=== PATIENT | male | born 1980 | race African-American/Black ===

== ENCOUNTER 2017-03-20 10:57 | Inpatient (IN) | payer OTHER, SELFPAY ==
[~2017-03-20] VITALS: Ht 188 cm; Wt 95.1 kg
[2017-03-20 12:01] LABS: MEAN CORPUSCULAR HEMOGLOBIN 23.1 pg (27.0-33.0); MEAN CORPUSCULAR HGB CONC 31.1 g/dl (32.0-36.5); MEAN CORPUSCULAR VOLUME 74.2 fl (80.0-96.0); WHITE BLOOD COUNT 4.9 K/mm3 (4.0-10.0)
--- NOTE | 2017-03-20 12:14 | REP ---
RIGHT SHOULDER, THREE VIEWS: There is no evidence of an acute fracture, dislocation or intrinsic bone disease. IMPRESSION: No fracture or dislocation. Signed by Fan Schwartz MD 03/20/2017 01:31 P
--- NOTE | 2017-03-20 12:17 | REP ---
CERVICAL SPINE SERIES, EIGHT VIEWS: Eight views of the cervical spine are performed. There is no evidence of acute fracture or dislocation. There is no prevertebral soft tissue swelling. Disc spaces are well preserved. There is no significant subluxation with flexion or extension. IMPRESSION: No acute fracture or dislocation. Signed by Fan Schwartz MD 03/20/2017 01:31 P
[2017-03-20 12:31] LABS: ALBUMIN 4.3 GM/DL (3.2-5.2); ALBUMIN/GLOBULIN RATIO 1.43 (1.00-1.93); ALKALINE PHOSPHATASE 74 U/L (45-117); ALT/SGPT 18 U/L (12-78); ANION GAP 5 MEQ/L (8-16); AST/SGOT 14 U/L (15-37); BILIRUBIN,DIRECT 0.2 MG/DL (0.0-0.2); BILIRUBIN,TOTAL 0.6 MG/DL (0.2-1.0); BLOOD UREA NITROGEN 8 MG/DL (7-18); CALCIUM LEVEL 9.6 MG/DL (8.5-10.1); CARBON DIOXIDE LEVEL 32 MEQ/L (21-32); CHLORIDE LEVEL 106 MEQ/L (98-107); CREATININE FOR GFR 1.03 MG/DL (0.70-1.30); GLOMERULAR FILTRATION RATE > 60.0 (>60); GLUCOSE, FASTING 85 MG/DL (70-105); SODIUM LEVEL 143 MEQ/L (136-145); TOTAL PROTEIN 7.3 GM/DL (6.4-8.2)
[2017-03-20 13:16] LABS: METHADONE URINE NEGATIVE (NEGATIVE)
--- NOTE | 2017-03-20 14:37 | REP ---
CT Head without contrast HISTORY: Altered mental status COMPARISON: None There is no intraparenchymal hemorrhage, acute infarct, mass or midline shift. The ventricular system is normal in appearance. There is no extra cerebral collection. There is no fracture. The visualized sinuses are clear. IMPRESSION: There is no intracranial lesion. Signed by Krzysztof Hurtado MD 03/20/2017 02:28 P
[2017-03-20] MEDS ORDERED: MAALOX 30 ML SUSP *UDC PO PRN (16:30)
[2017-03-20] MEDS ORDERED: MOM 30ML SUSPENSION UDC PO PRN (16:30)
[2017-03-20] MEDS ORDERED: HALOPERIDOL 5 MG TAB PO PRN (16:30)
[2017-03-20] MEDS: LORazepam 2 MG TAB PO PRN (17:00)
[2017-03-20] MEDS ORDERED: LORazepam 2 MG TAB PO PRN (17:15)
[2017-03-20] MEDS ORDERED: THIAMINE 100 MG TAB PO ONE (17:15)
[2017-03-20 18:05] VITALS: BP 159/93
[2017-03-20] MEDS: risperiDONE 1 MG TAB PO SCH ×2 (18:41→20:42)
[2017-03-20] MEDS: traZODone 50 MG TAB PO PRN (20:42)
[2017-03-21 07:00] VITALS: BP 162/99
[2017-03-21] MEDS: MULTIVITAMINS/MINERALS THERAP 1 TAB PO SCH (09:10)
[2017-03-21] MEDS: THIAMINE 100 MG TAB PO SCH ×2 (09:10→22:46)
[2017-03-21] MEDS: risperiDONE 1 MG TAB PO SCH ×2 (09:10→12:50)
[2017-03-21] MEDS: FOLIC ACID 1 MG TAB PO SCH (09:10)
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
--- NOTE | 2017-03-21 10:53 | REP ---
LEFT SHOULDER, THREE VIEWS: HISTORY: Pain. There is no acute fracture or dislocation. The joint spaces are normal in appearance. IMPRESSION: There is no acute fracture or dislocation. Signed by Krzysztof Hurtado MD 03/21/2017 10:55 A
--- NOTE | 2017-03-21 11:02 | REP ---
BILATERAL HIPS, PELVIS, FIVE VIEWS: HISTORY: Pain. RIGHT HIP: There is no acute fracture or dislocation. The joint space is normal in appearance. IMPRESSION: There is no acute fracture or dislocation. LEFT HIP: There is no acute fracture or dislocation. The joint space is normal in appearance. IMPRESSION: There is no acute fracture or dislocation. Signed by Krzysztof Hurtado MD 03/21/2017 11:07 A
[2017-03-21 11:18] VITALS: BP 152/98
[2017-03-21] MEDS: LORazepam 2 MG TAB PO PRN ×2 (12:50→22:46)
[2017-03-21] MEDS ORDERED: OLANZapine 10 MG TAB PO ONE (13:00)
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
[2017-03-21 18:00] VITALS: BP 120/72
--- NOTE | 2017-03-21 19:28 | ECGEPIP ---
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
[2017-03-21] MEDS: OLANZapine 10 MG TAB PO SCH (22:46)
[2017-03-22 06:45] VITALS: BP 164/110
[2017-03-22 06:48] VITALS: BP 164/110
[2017-03-22 07:03] LABS: BASO # 0.1 K/mm3 (0.0-0.2); BASO % 1.3 % (0.0-1.0); EOS # 0.1 K/mm3 (0.0-0.50); EOS % 2.7 % (0.0-3.0); LARGE UNSTAINED CELL # 0.1 K/mm3 (0.0-0.4); LARGE UNSTAINED CELL % 2.5 % (0.0-4.0); LYMPH # 1.8 K/mm3 (1.5-4.5); LYMPH % 37.5 % (24.0-44.0); MEAN CORPUSCULAR HGB CONC 32.3 g/dl (32.0-36.5); MEAN CORPUSCULAR VOLUME 74.3 fl (80.0-96.0); MONO # 0.3 K/mm3 (0.0-0.8); MONO % 6.5 % (0.0-5.0); NEUTROPHILS # 2.2 K/mm3 (1.8-7.7); NEUTROPHILS % 49.5 % (36.0-66.0); PLATELET COUNT, AUTOMATED 270 k/mm3 (150-450); WHITE BLOOD COUNT 4.4 K/mm3 (4.0-10.0)
[2017-03-22 07:50] VITALS: BP 164/110
[2017-03-22] MEDS: THIAMINE 100 MG TAB PO SCH ×2 (09:07→20:58)
[2017-03-22] MEDS: OLANZapine 10 MG TAB PO SCH ×3 (09:07→20:58)
[2017-03-22] MEDS: FOLIC ACID 1 MG TAB PO SCH (09:07)
[2017-03-22] MEDS: MULTIVITAMINS/MINERALS THERAP 1 TAB PO SCH (09:07)
[2017-03-22 18:00] VITALS: BP 144/90
[2017-03-22 19:57] VITALS: BP 144/90
[2017-03-22] MEDS: LORazepam 2 MG TAB PO PRN (20:58)
[2017-03-23] VITALS (7 sets, daily range): BP systolic 140–186; BP diastolic 90–110
[2017-03-23] MEDS: LORazepam 2 MG TAB PO PRN ×2 (04:09→12:19)
[2017-03-23] MEDS: OLANZapine 10 MG TAB PO SCH ×3 (08:07→20:27)
[2017-03-23] MEDS: THIAMINE 100 MG TAB PO SCH (08:07)
[2017-03-23] MEDS: FOLIC ACID 1 MG TAB PO SCH (08:07)
[2017-03-23] MEDS: MULTIVITAMINS/MINERALS THERAP 1 TAB PO SCH (08:07)
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
[2017-03-23] MEDS: traZODone 50 MG TAB PO PRN (20:27)
[2017-03-24] VITALS (9 sets, daily range): BP systolic 146–166; BP diastolic 96–116
[2017-03-24] MEDS: LORazepam 2 MG TAB PO PRN ×3 (01:26→16:51)
--- NOTE | 2017-03-24 06:35 | IPN ---
DATE: 03/23/2017 The patient states that today he is feeling anxious and tired. He said he slept good. He remains delusional. He says that he is dealing with having some amnesia about the days prior to his hospitalization and he wants somebody to show him "a video". He feels he is not being treated as a person if this is not done. MENTAL STATUS EXAMINATION: This patient is alert and oriented times three. Eye contact is really good. He is not suicidal or homicidal. He continues with paranoid delusions and that his mood is "not good". Affect is appropriate to mood. Concentration is fair. Insight and judgment poor. DIAGNOSIS: Schizoaffective disorder. Cannabis use disorder. TREATMENT PLAN: At this point, we will continue to monitor the patient for continued resolution of his psychotic symptoms and we will titrate his medications as indicated.
[2017-03-24] MEDS: OLANZapine 10 MG TAB PO SCH ×3 (09:04→21:06)
[2017-03-24] MEDS: MULTIVITAMINS/MINERALS THERAP 1 TAB PO SCH (09:04)
[2017-03-24] MEDS: FOLIC ACID 1 MG TAB PO SCH (09:04)
[2017-03-24 09:07] LABS: BASO % 1.2 % (0.0-1.0); EOS # 0.2 K/mm3 (0.0-0.50); EOS % 4.1 % (0.0-3.0); LARGE UNSTAINED CELL # 0.1 K/mm3 (0.0-0.4); LARGE UNSTAINED CELL % 1.8 % (0.0-4.0); LYMPH # 1.3 K/mm3 (1.5-4.5); LYMPH % 30.7 % (24.0-44.0); MEAN CORPUSCULAR HEMOGLOBIN 23.6 pg (27.0-33.0); MEAN CORPUSCULAR HGB CONC 31.3 g/dl (32.0-36.5); MEAN CORPUSCULAR VOLUME 75.5 fl (80.0-96.0); MONO # 0.3 K/mm3 (0.0-0.8); MONO % 6.7 % (0.0-5.0); NEUTROPHILS # 2.3 K/mm3 (1.8-7.7); NEUTROPHILS % 55.5 % (36.0-66.0); PLATELET COUNT, AUTOMATED 239 k/mm3 (150-450); RED CELL DISTRIBUTION WIDTH 14.9 % (11.5-14.5)
[2017-03-24 09:12] LABS: REASON FOR REVIEW COMPREHENSIVE REVIEW
[2017-03-24 11:13] LABS: FOLATE 21.2 NG/ML (>5.4)
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
[2017-03-24] MEDS: ARIPiprazole 10 MG TAB PO SCH (15:44)
[2017-03-24] MEDS ORDERED: cloNIDine 0.1 MG TAB PO STA (18:22)
[2017-03-25 06:58] VITALS: BP 147/98
[2017-03-25] MEDS: ARIPiprazole 10 MG TAB PO SCH (08:08)
[2017-03-25] MEDS: OLANZapine 10 MG TAB PO SCH ×3 (08:08→20:57)
[2017-03-25] MEDS: FOLIC ACID 1 MG TAB PO SCH (08:08)
[2017-03-25] MEDS: MULTIVITAMINS/MINERALS THERAP 1 TAB PO SCH (08:08)
[2017-03-25] MEDS: cloNIDine 0.1 MG TAB PO PRN ×2 (08:08→16:13)
[2017-03-25 09:39] VITALS: BP 148/98
[2017-03-25 18:00] VITALS: BP 138/102
[2017-03-25] MEDS: LORazepam 2 MG TAB PO PRN (20:57)
[2017-03-26 06:55] VITALS: BP 164/110
[2017-03-26] MEDS: cloNIDine 0.1 MG TAB PO PRN ×2 (06:55→17:24)
[2017-03-26] MEDS: LORazepam 2 MG TAB PO PRN ×3 (07:45→20:38)
[2017-03-26 07:48] VITALS: BP 146/100
--- NOTE | 2017-03-26 08:38 | MHIPN ---
DATE: 03/25/2017 Vital signs: Temperature 97.0, pulse 96, respirations 18, blood pressure 147/98. CURRENT MEDICATIONS: - Zyprexa 10 mg three times daily - Abilify 10 mg every morning - trazodone 50 mg at bedtime as needed HISTORY OF PRESENT ILLNESS: Patient claims he is claustrophobic here on the unit. He would like to go outside for a run. This clearly is not possible. He complains of having lost memories with gaps in his knowledge between August and November 2016. He would like to have cameras reviewed to provide information about his past. His outpatient psychiatrist is trying to attempt a transfer to inpatient facility at the [facility] ([place]). Patient is agreeable to this. Patient may be a candidate for the Abilify Maintena. Patient has tolerated the oral Abilify 10 mg well for two doses so far. Patient still gets paranoid about events regarding his trespassing change and the police. He gets agitated but is more easily directable. His appetite is fine. He reports he is sleeping well here on the unit. He is starting to interact more with the other patients and to go to the therapy treatment options. MENTAL STATUS EXAMINATION: Patient less agitated. Paranoia persists but not as severe. His rants and rages are decreased in frequency and intensity. Patient is still hearing voices. Paranoia still evident. Insight and judgment appear limited. Depression not as prominent. No signs of jody. Decrease in psychomotor agitation. Impulse control seems improved. DIAGNOSIS: Schizoaffective disorder, depressed. Cannabis use disorder. PLAN: Continue current psychotropics. Possible transfer to [facility] if bed becomes available.
[2017-03-26] MEDS ORDERED: FAMOTIDINE 20 MG TAB PO SCH (09:00)
[2017-03-26] MEDS: OLANZapine 10 MG TAB PO SCH ×3 (09:34→20:38)
[2017-03-26] MEDS: MULTIVITAMINS/MINERALS THERAP 1 TAB PO SCH (09:34)
[2017-03-26] MEDS: ARIPiprazole 10 MG TAB PO SCH (09:34)
[2017-03-26] MEDS: FOLIC ACID 1 MG TAB PO SCH (09:35)
[2017-03-26] MEDS: amLODIPine 5 MG TAB PO SCH (09:35)
[2017-03-26 17:33] VITALS: BP 138/90
[2017-03-26 18:00] VITALS: BP 152/110
[2017-03-26] MEDS: traZODone 50 MG TAB PO PRN (20:38)
[2017-03-27 06:27] VITALS: BP 162/98
[2017-03-27 08:01] VITALS: BP 152/96
[2017-03-27] MEDS: MULTIVITAMINS/MINERALS THERAP 1 TAB PO SCH (08:04)
[2017-03-27] MEDS: cloNIDine 0.1 MG TAB PO PRN ×2 (08:04→16:35)
[2017-03-27] MEDS: ARIPiprazole 10 MG TAB PO SCH (08:04)
[2017-03-27] MEDS: FOLIC ACID 1 MG TAB PO SCH (08:04)
[2017-03-27] MEDS: amLODIPine 5 MG TAB PO SCH ×2 (08:04→17:54)
[2017-03-27] MEDS: OLANZapine 10 MG TAB PO SCH ×3 (08:04→22:11)
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
[2017-03-27 09:33] VITALS: BP 128/88
[2017-03-27] MEDS ORDERED: LORazepam 1 MG TAB PO PRN (11:45)
[2017-03-27 17:17] VITALS: BP 158/106
[2017-03-27] MEDS ORDERED: amLODIPine 5 MG TAB As Ordered ONE (17:53)
[2017-03-27 18:00] VITALS: BP 158/120
[2017-03-27] MEDS ORDERED: cloNIDine 0.1 MG TAB PO ONE (18:00)
[2017-03-27 19:30] VITALS: BP 138/96
[2017-03-28] MEDS: cloNIDine 0.2 MG TAB PO PRN (06:02)
[2017-03-28 06:18] VITALS: BP 174/102
--- NOTE | 2017-03-28 07:22 | MHIPN ---
DATE: 03/26/2017 Vital signs: Temperature 98.8, pulse 66, respiration 18, blood pressure 164/110. CURRENT MEDICATIONS: - Abilify 10 mg daily every morning - Zyprexa 10 mg three times daily - trazodone 50 mg at bedtime as needed HISTORY OF PRESENT ILLNESS: Patient's blood pressure is elevated. He has been given as needed clonidine, however, he states that he will discontinue the blood pressure meds upon discharge. He claims he is into natural treatments. He meditates. He thinks he can control his blood pressure on his own. He is strongly advised to cooperate with is primary care physician upon discharge. He states his appetite is good. He is starting to attend the groups now. He is less irritable. Patient is still paranoid but is not going off on the rages or rants that he was doing earlier in the week. Patient still wants to go outside to go for a run but he is informed that he needs to stay here in the hospital while his medications are adjusted. Hopefully the [facility] ([place]) will have a bed that opens up soon. MENTAL STATUS EXAMINATION: Patient is more appropriate today. He is not agitated. He still reports paranoid content but without any long winded rages. Patient is still hearing voices. Patient not appearing depressed today. Psychomotor restlessness definitely improved. Impulse control seems improved. Insight and judgment appear fair. Insight about his blood pressure is nil. He shows poor judgment regarding his blood pressure medications. DIAGNOSIS: Schizoaffective disorder, depressed. Cannabis use disorder. PLAN: Continue current psychotropics with hopeful transfer to [facility] in the near future.
[2017-03-28 08:25] VITALS: BP 154/92
[2017-03-28] MEDS: OLANZapine 10 MG TAB PO SCH ×3 (08:49→20:39)
[2017-03-28] MEDS: ARIPiprazole 10 MG TAB PO SCH (08:49)
[2017-03-28] MEDS: MULTIVITAMINS/MINERALS THERAP 1 TAB PO SCH (08:49)
[2017-03-28] MEDS: FOLIC ACID 1 MG TAB PO SCH (08:49)
[2017-03-28] MEDS: amLODIPine 5 MG TAB PO SCH ×2 (08:49→20:40)
[2017-03-28 08:50] VITALS: BP 124/90
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
[2017-03-28 12:00] VITALS: BP 159/90
[2017-03-28 18:00] VITALS: BP 161/89
[2017-03-28] MEDS: traZODone 50 MG TAB PO PRN (20:39)
[2017-03-28 20:40] VITALS: BP 150/100
[2017-03-29 06:45] VITALS: BP 154/99
[2017-03-29 07:52] VITALS: BP 156/94
[2017-03-29] MEDS: FOLIC ACID 1 MG TAB PO SCH (07:54)
[2017-03-29] MEDS: OLANZapine 10 MG TAB PO SCH ×3 (07:54→20:12)
[2017-03-29] MEDS: MULTIVITAMINS/MINERALS THERAP 1 TAB PO SCH (07:54)
[2017-03-29] MEDS: amLODIPine 5 MG TAB PO SCH ×2 (07:55→20:12)
[2017-03-29] MEDS ORDERED: CEPACOL LOZENGE PO PRN (12:15)
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
[2017-03-29 18:00] VITALS: BP 140/94
[2017-03-29] MEDS: traZODone 50 MG TAB PO PRN (20:12)
[2017-03-29] MEDS: cloNIDine 0.2 MG TAB PO PRN (20:13)
[2017-03-29] MEDS: LORazepam 1 MG TAB PO PRN (20:13)
[2017-03-30 07:08] VITALS: BP 148/94
[2017-03-30 08:20] VITALS: BP 159/94
[2017-03-30] MEDS: OLANZapine 10 MG TAB PO SCH ×3 (08:21→21:06)
[2017-03-30] MEDS: amLODIPine 5 MG TAB PO SCH ×2 (08:21→21:06)
[2017-03-30] MEDS: MULTIVITAMINS/MINERALS THERAP 1 TAB PO SCH (08:21)
[2017-03-30] MEDS: FOLIC ACID 1 MG TAB PO SCH (08:21)
[2017-03-30] MEDS: cloNIDine 0.2 MG TAB PO PRN (08:21)
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
[2017-03-30 18:00] VITALS: BP 124/77
[2017-03-30] MEDS: traZODone 50 MG TAB PO PRN (21:04)
[2017-03-31 06:23] VITALS: BP 148/86
[2017-03-31] MEDS: FOLIC ACID 1 MG TAB PO SCH (08:08)
[2017-03-31] MEDS: MULTIVITAMINS/MINERALS THERAP 1 TAB PO SCH (08:08)
[2017-03-31] MEDS: amLODIPine 5 MG TAB PO SCH ×2 (08:08→20:53)
[2017-03-31] MEDS: OLANZapine 10 MG TAB PO SCH ×3 (08:08→20:52)
[2017-03-31] MEDS: ACETAMINOPHEN TAB 650MG DOSE (2X325MG) PO PRN (08:09)
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
[2017-03-31 18:00] VITALS: BP 160/108
[2017-03-31] MEDS: LORazepam 1 MG TAB PO PRN (19:17)
[2017-03-31] MEDS: cloNIDine 0.2 MG TAB PO PRN (19:20)
[2017-03-31] MEDS: traZODone 50 MG TAB PO PRN (20:52)
[2017-04-01 07:32] VITALS: BP 136/82
[2017-04-01] MEDS: OLANZapine 10 MG TAB PO SCH ×3 (08:26→20:14)
[2017-04-01] MEDS: FOLIC ACID 1 MG TAB PO SCH (08:26)
[2017-04-01] MEDS: amLODIPine 5 MG TAB PO SCH ×2 (08:26→20:14)
[2017-04-01] MEDS: MULTIVITAMINS/MINERALS THERAP 1 TAB PO SCH (08:26)
--- NOTE | 2017-04-01 17:44 | MHIPNPDOC ---
[facility] Progress Note Progress Note DATE OF SERVICE: 04/01/17 HISTORY: Patient was seen and evaluated for his progress in the inpatient psychiatric unit on the evaluation. Patient reported that he has been upset that he is still in the inpatient unit. He has been still, pacing around in the unit, getting upset easily and at times banging on the doors, He is refusing to participate in the any activities of the unit and most of her time either watching TV or pacing in the unit. He continues to deny any suicidal or homicidal ideations, also denies any hallucinations. Denies any paranoid or other psychotic features but remains internally preoccupied. Offered him to go for long-term injectable and psychotic medication, but he refused to go for one at this point Outpatient psychiatry from [place] called to discuss about the progress of the patient. He reported that they're trying to help patient transferred to inpatient psychiatry in [facility], but so far do not have any bed available. He is willing to take the patient back after discharge from the inpatient unit. VITAL SIGNS: See below. CURRENT MEDICATIONS: - Abilify 10 mg daily - Zyprexa 10 mg three times daily - trazodone 50 mg at bedtime as needed MENTAL STATUS EXAMINATION: 36yo male sitting in the bed, looks appropriate for the stated age, poor hygiene and grooming, increased psychomotor activities, no abnormal movements, superficially cooperative with fair eye contact, speech is increased in rate, normal rhythm, amount and prosody, mood is irritable, affect labile and mood congruent, tangential & circumstantial at times, denies suicidal and homicidal ideations, denies hallucinations, paranoid, aaox3 limited insight, judgement and impulse control DIAGNOSES: 1. Schizoaffective disorder, depressed type, marijuana abuse. ASSESSMENT: Patient continued to be internally preoccupied and does not participate in day any activities in the unit but denies any hallucinations at this point MANAGEMENT PLAN:, Continue current treatment. Possible transfer to inpatient psychiatry in [facility] TIME SPENT: 15 minutes. Vital Signs Vital Signs Date Time Temp Pulse Resp B/P (MAP) Pulse Ox O2 Delivery O2 Flow Rate FiO2 04/01/17 08:26 80 136/82 04/01/17 07:32 98.9 16 03/31/17 06:23 Room Air Allergies Coded Allergies: No Known Allergies (Unverified , 03/20/17) JOCE OLIVEIRA MD Apr 01, 2017 17:44
[2017-04-01 18:00] VITALS: BP 148/96
[2017-04-01] MEDS: traZODone 50 MG TAB PO PRN (20:14)
[2017-04-01] MEDS: ACETAMINOPHEN TAB 650MG DOSE (2X325MG) PO PRN (20:15)
[2017-04-02 07:01] VITALS: BP 152/110
[2017-04-02 07:46] VITALS: BP 150/86
[2017-04-02] MEDS: FOLIC ACID 1 MG TAB PO SCH (07:49)
[2017-04-02] MEDS: cloNIDine 0.2 MG TAB PO PRN ×2 (07:49→20:13)
[2017-04-02] MEDS: MULTIVITAMINS/MINERALS THERAP 1 TAB PO SCH (07:49)
[2017-04-02] MEDS: OLANZapine 10 MG TAB PO SCH ×3 (07:49→20:13)
[2017-04-02] MEDS: amLODIPine 5 MG TAB PO SCH ×2 (07:49→20:13)
[2017-04-02] MEDS: ACETAMINOPHEN TAB 650MG DOSE (2X325MG) PO PRN ×2 (11:31→20:14)
[2017-04-02 11:32] VITALS: BP 132/84
--- NOTE | 2017-04-02 17:34 | MHIPNPDOC ---
[facility] Progress Note Progress Note DATE OF SERVICE: 04/02/17 HISTORY: She was seen and evaluated for his progress in the inpatient psychiatric unit on evaluation, patient reported that he has been doing fine and does not know why she is still here. 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 It is still not able to engage in the anything unit activities, but no agitation or aggressive behavior. He also denies any auditory or visual hallucinations. He also denies some paranoid ideations, which she was reporting when he came in, like 'witch and warlock'. Discussed in the team meeting with systems requirements planner and nursing staff about further management and possible discharge planning. VITAL SIGNS: See below. CURRENT MEDICATIONS: - Zyprexa 10 mg three times daily - trazodone 50 mg at bedtime as needed MENTAL STATUS EXAMINATION: 36yo male sitting in the bed, looks appropriate for the stated age, fair hygiene and grooming, increased psychomotor activities, no abnormal movements, superficially cooperative with fair eye contact, speech is increased in rate, normal rhythm, amount and prosody, mood is irritable, affect labile and mood congruent, tangential & circumstantial at times, denies suicidal and homicidal ideations, denies hallucinations, paranoid, aaox3 limited insight, judgement and impulse control DIAGNOSES: 1. Schizoaffective disorder, depressed type, marijuana abuse. ASSESSMENT: Patient continued to be internally preoccupied and does not participate in day any activities in the unit but denies any hallucinations at this point MANAGEMENT PLAN:, Continue current treatment. Possible transfer to inpatient psychiatry in [facility] TIME SPENT: 15 minutes. Vital Signs Vital Signs Date Time Temp Pulse Resp B/P (MAP) Pulse Ox O2 Delivery O2 Flow Rate FiO2 04/02/17 11:32 132/84 (100) 04/02/17 07:49 86 04/02/17 07:01 96.8 16 04/01/17 18:00 Room Air Allergies Coded Allergies: No Known Allergies (Unverified , 03/20/17) JOCE OLIVEIRA MD Apr 02, 2017 17:34
[2017-04-02 18:00] VITALS: BP 127/80
[2017-04-02] MEDS: traZODone 50 MG TAB PO PRN (20:13)
[2017-04-03 06:17] VITALS: BP 156/98
[2017-04-03] MEDS: FOLIC ACID 1 MG TAB PO SCH (08:42)
[2017-04-03] MEDS: MULTIVITAMINS/MINERALS THERAP 1 TAB PO SCH (08:42)
[2017-04-03] MEDS: amLODIPine 5 MG TAB PO SCH ×2 (08:42→20:11)
[2017-04-03] MEDS: OLANZapine 10 MG TAB PO SCH ×3 (08:42→20:10)
[2017-04-03 08:50] VITALS: BP 148/90
[2017-04-03] MEDS: cloNIDine 0.2 MG TAB PO PRN ×2 (10:06→20:11)
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
[2017-04-03 18:00] VITALS: BP 125/71
[2017-04-03] MEDS: traZODone 50 MG TAB PO PRN (20:10)
[2017-04-03] MEDS: ACETAMINOPHEN TAB 650MG DOSE (2X325MG) PO PRN (20:11)
[2017-04-04 06:49] VITALS: BP 179/110
[2017-04-04 07:47] VITALS: BP 158/82
[2017-04-04] MEDS: MULTIVITAMINS/MINERALS THERAP 1 TAB PO SCH (08:10)
[2017-04-04] MEDS: FOLIC ACID 1 MG TAB PO SCH (08:10)
[2017-04-04] MEDS: amLODIPine 5 MG TAB PO SCH ×2 (08:11→20:20)
[2017-04-04] MEDS: OLANZapine 10 MG TAB PO SCH ×3 (08:11→20:20)
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
[2017-04-04] MEDS: LISINOPRIL 5 MG TAB PO SCH (09:08)
[2017-04-04 09:09] VITALS: BP 130/86
--- NOTE | 2017-04-04 15:20 | MHIPNPDOC ---
[facility] Progress Note Progress Note DATE OF SERVICE: 04/04/17 HISTORY: Patient was seen and evaluated for his progress in inpatient psychiatry Unit. On evaluation, patient reported that he is still not able to understand why still he is here. After discussing about the various disposition options. He continued to be upset and angry. Patient started pacing in the unit and was started to have gestures from his hands and legs. He reported that he likes to be at home and listen to music and dance in his apartment, but while being here, He is not able to do that. He remains internally preoccupied and unpredictable at times. He refused to talk with the author after small conversation. He continues to deny suicidal or homicidal ideations and also denies auditory or visual hallucinations, but remains internally preoccupied and possibly responding to internal stimuli. He reported sleeping and eating fine and denies paranoid ideations. VITAL SIGNS: See below. CURRENT MEDICATIONS: - Zyprexa 10 mg three times daily - trazodone 50 mg at bedtime as needed MENTAL STATUS EXAMINATION: 36yo male sitting in the bed, looks appropriate for the stated age, fair hygiene and grooming, increased psychomotor activities, no abnormal movements, superficially cooperative with fair eye contact, speech is increased in rate, normal rhythm, amount and prosody, mood is irritable, affect labile and mood congruent, tangential & circumstantial at times, denies suicidal and homicidal ideations, denies hallucinations, paranoid, aaox3 limited insight, judgement and impulse control DIAGNOSES: 1. Schizoaffective disorder, depressed type, marijuana abuse. ASSESSMENT: Patient continued to be internally preoccupied and does not participate in day any activities in the unit but denies any hallucinations at this point MANAGEMENT PLAN:, Continue current treatment. Possible transfer to inpatient psychiatry in [facility] TIME SPENT: 15 minutes. Vital Signs Vital Signs Date Time Temp Pulse Resp B/P (MAP) Pulse Ox O2 Delivery O2 Flow Rate FiO2 04/04/17 09:09 130/86 (101) 04/04/17 08:11 79 04/04/17 06:49 96.6 18 Room Air 04/02/17 18:00 100 Current Medications Current Medications Acetaminophen (Tylenol Tab) 650 mg Q6HP PRN PO HEADACHE or DISCOMFORT Last administered on 04/03/17t 20:11; Start 03/20/17 at 16:30; Stop 04/19/17 at 16:29 Al Hydrox/Mg Hydrox/Simethicone (Mylanta) 30 ml Q4HP PRN PO HEARTBURN/ INDIGESTION; Start 03/20/17 at 16:30; Stop 04/19/17 at 16:29 Amlodipine Besylate (Norvasc) 5 mg BID PO Last administered on 04/04/17 08:11 ; Start 03/27/17 at 21:00; Stop 04/26/17 at 20:59 Amlodipine Besylate (Norvasc) 5 mg DAILY PO Last administered on 03/27/17 08: 04; Start 03/26/17 at 09:00; Stop 03/27/17 at 08:55; Status DC Aripiprazole (AbiLIFY) 10 mg DAILY PO Last administered on 03/28/17 08:49; Start 03/24/17 at 09:00; Stop 03/28/17 at 16:17; Status DC Cetylpyridinium Chloride (Cepacol) 1 tomy Q2HP PRN PO COUGH; Start 03/29/17 at 12:15; Stop 04/28/17 at 12:14 Clonidine HCl (Catapres) 0.1 mg Q8HP PRN PO Elevated blood pressure Last administered on 03/27/17 16:35; Start 03/24/17 at 18:30; Stop 03/27/17 at 16:59 ; Status DC Clonidine HCl (Catapres) 0.1 mg STAT STAT PO Last administered on 03/24/17 18 :34; Start 03/24/17 at 18:22; Stop 03/24/17 at 18:24; Status DC Clonidine HCl (Catapres) 0.2 mg Q8HP PRN PO ANXIETY/AGITATION Last administered on 04/03/17 20:11; Start 03/27/17 at 17:00; Stop 04/26/17 at 16:59 Famotidine (Pepcid) 20 mg DAILY PO ; Start 03/26/17 at 09:00; Stop 03/26/17 at 09:00; Status DC Folic Acid (Folic Acid) 1 mg DAILY PO Last administered on 04/04/17 08:10; Start 03/21/17 at 09:00; Stop 04/20/17 at 08:59 Haloperidol (Haldol) 5 mg Q4HP PRN PO ANXIETY/AGITATION Last administered on 17:00; Start 03/20/17 at 16:30; Stop 04/19/17 at 16:29 Home Med (Med Rec Complete!) ASDIRECTED XX ; Start 03/20/17 at 14:45; Stop 05/27 at 14:45; Status DC Lisinopril (Prinivil) 5 mg DAILY PO Last administered on 04/04/17 09:08; Start 04/04/17 at 09:00; Stop 05/04/17 at 08:59 Lorazepam (Ativan) 1 mg Q4HP PRN PO ANXIETY Last administered on 03/31/17 19: 17; Start 03/27/17 at 17:00; Stop 04/09/17 at 16:59 Lorazepam (Ativan) 1 mg Q8HP PRN PO ANXIETY Last administered on 03/27/17 16: 34; Start 03/27/17 at 11:45; Stop 03/27/17 at 16:59; Status DC Lorazepam (Ativan) 2 mg ASDIRECTED PRN PO SEE PROTOCOL Last administered on 06:58; Start 03/20/17 at 17:15; Stop 03/27/17 at 11:45; Status DC Lorazepam (Ativan) 2 mg Q4HP PRN PO ANXIETY/AGITATION Last administered on 03/26 20:38; Start 03/20/17 at 16:30; Stop 03/27/17 at 11:45; Status DC Magnesium Hydroxide (Milk Of Magnesia) 30 ml DAILYPRN PRN PO CONSTIPATION; Start 03/20/17 at 16:30; Stop 04/19/17 at 16:29 Multivitamins (Theragram-M) 1 tab DAILY PO Last administered on 04/04/17 08:10 ; Start 03/21/17 at 09:00; Stop 04/20/17 at 08:59 Olanzapine (ZyPREXA) 10 mg TID PO Last administered on 04/04/17 08:11; Start 03/21/17 at 21:00; Stop 04/20/17 at 20:59 Risperidone (RisperDAL) 1 mg QID PO Last administered on 03/21/17 12:50; Start 03/20/17 at 17:00; Stop 03/21/17 at 12:51; Status DC Thiamine HCl (Thiamine HCl) 100 mg BID PO Last administered on 03/23/17 08:07 ; Start 03/21/17 at 09:00; Stop 03/23/17 at 09:01; Status DC Trazodone HCl (Desyrel) 50 mg QHSP PRN PO INSOMNIA Last administered on 20:10; Start 03/20/17 at 16:30; Stop 04/19/17 at 16:29 Allergies Coded Allergies: No Known Allergies (Unverified , 03/20/17) JOCE OLIVEIRA MD Apr 04, 2017 15:20
[2017-04-04 18:00] VITALS: BP 154/85
[2017-04-04] MEDS: traZODone 50 MG TAB PO PRN (20:21)
[2017-04-05 06:00] VITALS: BP 164/113
[2017-04-05] MEDS: cloNIDine 0.2 MG TAB PO PRN (06:38)
[2017-04-05] MEDS: amLODIPine 5 MG TAB PO SCH ×2 (06:39→20:19)
[2017-04-05 07:10] VITALS: BP 140/92
[2017-04-05 07:40] VITALS: BP 124/85
[2017-04-05] MEDS: LISINOPRIL 5 MG TAB PO SCH (08:34)
[2017-04-05] MEDS: FOLIC ACID 1 MG TAB PO SCH (08:35)
[2017-04-05] MEDS: OLANZapine 10 MG TAB PO SCH ×3 (08:35→20:18)
[2017-04-05] MEDS: MULTIVITAMINS/MINERALS THERAP 1 TAB PO SCH (08:35)
[2017-04-05 09:18] VITALS: BP 120/90
[2017-04-05 18:00] VITALS: BP 133/85
[2017-04-06 06:40] VITALS: BP 144/100
[2017-04-06] MEDS: amLODIPine 5 MG TAB PO SCH ×2 (08:23→20:47)
[2017-04-06] MEDS: MULTIVITAMINS/MINERALS THERAP 1 TAB PO SCH (08:23)
[2017-04-06] MEDS: OLANZapine 10 MG TAB PO SCH ×3 (08:23→20:47)
[2017-04-06] MEDS: FOLIC ACID 1 MG TAB PO SCH (08:23)
[2017-04-06] MEDS: LISINOPRIL 5 MG TAB PO SCH (08:23)
[2017-04-06] MEDS: cloNIDine 0.2 MG TAB PO PRN (16:26)
[2017-04-06 18:00] VITALS: BP 171/99
[2017-04-06] MEDS ORDERED: LISINOPRIL 5 MG TAB PO ONE (20:00)
[2017-04-06] MEDS: traZODone 50 MG TAB PO PRN (20:48)
[2017-04-07 06:33] VITALS: BP 136/91
[2017-04-07] MEDS: FOLIC ACID 1 MG TAB PO SCH (08:20)
[2017-04-07] MEDS: OLANZapine 10 MG TAB PO SCH ×3 (08:21→20:11)
[2017-04-07] MEDS: MULTIVITAMINS/MINERALS THERAP 1 TAB PO SCH (08:21)
[2017-04-07] MEDS: amLODIPine 5 MG TAB PO SCH ×2 (08:21→20:12)
[2017-04-07] MEDS: LISINOPRIL 10 MG TAB PO SCH (08:21)
--- NOTE | 2017-04-07 14:51 | MHIPNPDOC ---
[facility] Progress Note Progress Note DATE OF SERVICE: 04/07/17 HISTORY: Patient was seen and evaluated for his progress in inpatient psychiatry unit. On evaluation, patient reported that he has been doing better and denies any time that he ever felt confused recently. He also denies any hallucinations or paranoid ideations. He continued to pace in the unit and reported that he likes to be moving all the time and if he was at home. He will be putting on music and dance on it. He is compliant with the medications and denies any side effects with the current medications but continues to refuse Chava and continues to deny any suicidal or homicidal ideations. He reported that he always likes to be alone and be with himself even when he was home and never had too many friends or close friends. He denies any craving for any drugs including marijuana and willing to go outpatient treatment for psychiatry , as well as substance use, even though he does not believe that he has any substance use problems. VITAL SIGNS: See below. CURRENT MEDICATIONS: - Zyprexa 10 mg three times daily - trazodone 50 mg at bedtime as needed MENTAL STATUS EXAMINATION: 36yo male sitting in the bed, looks appropriate for the stated age, fair hygiene and grooming, increased psychomotor activities, no abnormal movements, superficially cooperative with fair eye contact, speech is normal in rate, normal rhythm, amount and prosody, mood is stable, affect full & brighter and mood congruent, more logical & goal directed, denies suicidal and homicidal ideations, denies hallucinations, aaox3, limited insight, fair judgement and impulse control DIAGNOSES: 1. Schizoaffective disorder, depressed type, marijuana abuse. ASSESSMENT: Patient improving on the current treatment. Denies hallucinations and other psychotic symptoms including paranoid ideations somewhat internally preoccupied, but able to take care of himself with all the ADLs. Able to interact with others in the unit, however limited. MANAGEMENT PLAN: Various disposition options including inpatient [facility], [facility], [facility] (long-term inpatient psychiatry treatment), long -term care in [facility] have been looked at, but not feasible because of various reasons as noted in the discharge planners notes. We will continue to work with outpatient treatment providers in [facility] for continuation of treatment. We will also explore possible principal systems architect option along with IOP at [facility]. Patient continues to refuse long-term injectable medications and also refusing to increase the doses of any of his current medications. TIME SPENT: 15 minutes. Vital Signs Vital Signs Date Time Temp Pulse Resp B/P (MAP) Pulse Ox O2 Delivery O2 Flow Rate FiO2 04/07/17 08:21 136/91 04/07/17 08:21 68 04/07/17 06:33 98.0 16 Room Air 04/02/17 18:00 100 Current Medications Current Medications Acetaminophen (Tylenol Tab) 650 mg Q6HP PRN PO HEADACHE or DISCOMFORT Last administered on 04/03/17 20:11; Start 03/20/17 at 16:30; Stop 04/19/17 at 16:29 Al Hydrox/Mg Hydrox/Simethicone (Mylanta) 30 ml Q4HP PRN PO HEARTBURN/ INDIGESTION; Start 03/20/17 at 16:30; Stop 04/19/17 at 16:29 Amlodipine Besylate (Norvasc) 5 mg BID PO Last administered on 04/07/17 08:21 ; Start 03/27/17 at 21:00; Stop 04/26/17 at 20:59 Amlodipine Besylate (Norvasc) 5 mg DAILY PO Last administered on 03/27/17 08: 04; Start 03/26/17 at 09:00; Stop 03/27/17 at 08:55; Status DC Aripiprazole (AbiLIFY) 10 mg DAILY PO Last administered on 03/28/17 08:49; Start 03/24/17 at 09:00; Stop 03/28/17 at 16:17; Status DC Cetylpyridinium Chloride (Cepacol) 1 tomy Q2HP PRN PO COUGH; Start 03/29/17 at 12:15; Stop 04/28/17 at 12:14 Clonidine HCl (Catapres) 0.1 mg Q8HP PRN PO Elevated blood pressure Last administered on 03/27/17 16:35; Start 03/24/17 at 18:30; Stop 03/27/17 at 16:59 ; Status DC Clonidine HCl (Catapres) 0.1 mg STAT STAT PO Last administered on 03/24/17 18 :34; Start 03/24/17 at 18:22; Stop 03/24/17 at 18:24; Status DC Clonidine HCl (Catapres) 0.2 mg Q8HP PRN PO ANXIETY/AGITATION Last administered on 04/06/17 16:26; Start 03/27/17 at 17:00; Stop 04/26/17 at 16:59 Famotidine (Pepcid) 20 mg DAILY PO ; Start 03/26/17 at 09:00; Stop 03/26/17 at 09:00; Status DC Folic Acid (Folic Acid) 1 mg DAILY PO Last administered on 04/07/17 08:20; Start 03/21/17 at 09:00; Stop 04/20/17 at 08:59 Haloperidol (Haldol) 5 mg Q4HP PRN PO ANXIETY/AGITATION Last administered on 17:00; Start 03/20/17 at 16:30; Stop 04/19/17 at 16:29 Home Med (Med Rec Complete!) ASDIRECTED XX ; Start 03/20/17 at 14:45; Stop 05/27 at 14:45; Status DC Lisinopril (Prinivil) 5 mg DAILY PO Last administered on 04/06/17 08:23; Start 04/04/17 at 09:00; Stop 04/06/17 at 19:50; Status DC Lisinopril (Prinivil) 10 mg DAILY PO Last administered on 04/07/17 08:21; Start 04/07/17 at 09:00; Stop 05/07/17 at 08:59 Lorazepam (Ativan) 1 mg Q4HP PRN PO ANXIETY Last administered on 03/31/17 19: 17; Start 03/27/17 at 17:00; Stop 04/09/17 at 16:59 Lorazepam (Ativan) 1 mg Q8HP PRN PO ANXIETY Last administered on 03/27/17 16: 34; Start 03/27/17 at 11:45; Stop 03/27/17 at 16:59; Status DC Lorazepam (Ativan) 2 mg ASDIRECTED PRN PO SEE PROTOCOL Last administered on 06:58; Start 03/20/17 at 17:15; Stop 03/27/17 at 11:45; Status DC Lorazepam (Ativan) 2 mg Q4HP PRN PO ANXIETY/AGITATION Last administered on 03/26 20:38; Start 03/20/17 at 16:30; Stop 03/27/17 at 11:45; Status DC Magnesium Hydroxide (Milk Of Magnesia) 30 ml DAILYPRN PRN PO CONSTIPATION; Start 03/20/17 at 16:30; Stop 04/19/17 at 16:29 Multivitamins (Theragram-M) 1 tab DAILY PO Last administered on 04/07/17 08:21 ; Start 03/21/17 at 09:00; Stop 04/20/17 at 08:59 Olanzapine (ZyPREXA) 10 mg TID PO Last administered on 04/07/17 08:21; Start 03/21/17 at 21:00; Stop 04/20/17 at 20:59 Risperidone (RisperDAL) 1 mg QID PO Last administered on 03/21/17 12:50; Start 03/20/17 at 17:00; Stop 03/21/17 at 12:51; Status DC Thiamine HCl (Thiamine HCl) 100 mg BID PO Last administered on 03/23/17 08:07 ; Start 03/21/17 at 09:00; Stop 03/23/17 at 09:01; Status DC Trazodone HCl (Desyrel) 50 mg QHSP PRN PO INSOMNIA Last administered on 20:48; Start 03/20/17 at 16:30; Stop 04/19/17 at 16:29 Allergies Coded Allergies: No Known Allergies (Unverified , 03/20/17) JOCE OLIVEIRA MD Apr 07, 2017 14:51
[2017-04-07 18:00] VITALS: BP 150/94
[2017-04-07] MEDS: traZODone 50 MG TAB PO PRN (20:11)
[2017-04-08 06:56] VITALS: BP 143/93
[2017-04-08] MEDS: FOLIC ACID 1 MG TAB PO SCH (08:29)
[2017-04-08] MEDS: MULTIVITAMINS/MINERALS THERAP 1 TAB PO SCH (08:29)
[2017-04-08] MEDS: OLANZapine 10 MG TAB PO SCH ×3 (08:29→20:05)
[2017-04-08] MEDS: amLODIPine 5 MG TAB PO SCH ×2 (08:29→20:06)
[2017-04-08] MEDS: LISINOPRIL 10 MG TAB PO SCH (08:29)
[2017-04-08] MEDS: ACETAMINOPHEN TAB 650MG DOSE (2X325MG) PO PRN ×2 (08:31→20:05)
--- NOTE | 2017-04-08 15:19 | MHIPNPDOC ---
[facility] Progress Note Progress Note DATE OF SERVICE: 04/08/17 HISTORY: Patient was seen and evaluated on evaluation, patient reported that he has been feeling better and going to groups. When asked about hand and leg movements that he has been having. He reported that he is using those movements to release some of the energy that he has been having. He reported that at home he was boxing, doing the Reiki and other activities to release those energy, but where she is not able to do that, so he moves his hands and legs. He also reported that he had shoulder dislocation years ago, which needed chiropractic treatment and since then he has learned how to fix that 'Dislocated shoulder' so by moving the shoulder. He is trying to help get 'dislocated shoulder' fixed. Discussed about having no signs of dislocated shoulder and did not need any kind of treatment, which he was agreeable to. He denies any suicidal or homicidal ideations, intentions or plans. He also denies any psychotic symptoms including paranoid ideations or hallucinations, but his actions remained questionable and at times bizarre. He is able to function independently and take care of himself for the daily activities and also able to participate in the unit activities, no recent episodes of agitation or aggression. Sleeping and eating well. VITAL SIGNS: See below. CURRENT MEDICATIONS: - Zyprexa 10 mg three times daily - trazodone 50 mg at bedtime as needed MENTAL STATUS EXAMINATION: 36yo male sitting in the bed, looks appropriate for the stated age, fair hygiene and grooming, increased psychomotor activities, no abnormal movements, superficially cooperative with fair eye contact, speech is normal in rate, normal rhythm, amount and prosody, mood is stable, affect full and mood congruent, more logical & goal directed, denies suicidal and homicidal ideations , denies hallucinations, aaox3, limited insight, fair judgement and impulse control DIAGNOSES: 1. Schizoaffective disorder, depressed type, marijuana abuse. ASSESSMENT: Patient improving on the current treatment. Denies hallucinations and other psychotic symptoms including paranoid ideations somewhat internally preoccupied, but able to take care of himself with all the ADLs. Participates in unit activities. Unusual hands & leg gestures continue which he thinks as a way to release 'energy'. MANAGEMENT PLAN: Continue current treatment, discharge planning in progress. TIME SPENT: 15 minutes. Vital Signs Vital Signs Date Time Temp Pulse Resp B/P (MAP) Pulse Ox O2 Delivery O2 Flow Rate FiO2 04/08/17 08:29 143/93 04/08/17 08:29 74 04/08/17 06:56 98.2 16 Room Air 04/02/17 18:00 100 Current Medications Current Medications Acetaminophen (Tylenol Tab) 650 mg Q6HP PRN PO HEADACHE or DISCOMFORT Last administered on 04/08/17 08:31; Start 03/20/17 at 16:30; Stop 04/19/17 at 16:29 Al Hydrox/Mg Hydrox/Simethicone (Mylanta) 30 ml Q4HP PRN PO HEARTBURN/ INDIGESTION; Start 03/20/17 at 16:30; Stop 04/19/17 at 16:29 Amlodipine Besylate (Norvasc) 5 mg BID PO Last administered on 04/08/17 08:29 ; Start 03/27/17 at 21:00; Stop 04/26/17 at 20:59 Amlodipine Besylate (Norvasc) 5 mg DAILY PO Last administered on 03/27/17 08: 04; Start 03/26/17 at 09:00; Stop 03/27/17 at 08:55; Status DC Aripiprazole (AbiLIFY) 10 mg DAILY PO Last administered on 03/28/17 08:49; Start 03/24/17 at 09:00; Stop 03/28/17 at 16:17; Status DC Cetylpyridinium Chloride (Cepacol) 1 tomy Q2HP PRN PO COUGH; Start 03/29/17 at 12:15; Stop 04/28/17 at 12:14 Clonidine HCl (Catapres) 0.1 mg Q8HP PRN PO Elevated blood pressure Last administered on 03/27/17 16:35; Start 03/24/17 at 18:30; Stop 03/27/17 at 16:59 ; Status DC Clonidine HCl (Catapres) 0.1 mg STAT STAT PO Last administered on 03/24/17 18 :34; Start 03/24/17 at 18:22; Stop 03/24/17 at 18:24; Status DC Clonidine HCl (Catapres) 0.2 mg Q8HP PRN PO ANXIETY/AGITATION Last administered on 04/06/17 16:26; Start 03/27/17 at 17:00; Stop 04/26/17 at 16:59 Famotidine (Pepcid) 20 mg DAILY PO ; Start 03/26/17 at 09:00; Stop 03/26/17 at 09:00; Status DC Folic Acid (Folic Acid) 1 mg DAILY PO Last administered on 04/08/17 08:29; Start 03/21/17 at 09:00; Stop 04/20/17 at 08:59 Haloperidol (Haldol) 5 mg Q4HP PRN PO ANXIETY/AGITATION Last administered on 17:00; Start 03/20/17 at 16:30; Stop 04/19/17 at 16:29 Home Med (Med Rec Complete!) ASDIRECTED XX ; Start 03/20/17 at 14:45; Stop 05/27 at 14:45; Status DC Lisinopril (Prinivil) 5 mg DAILY PO Last administered on 04/06/17 08:23; Start 04/04/17 at 09:00; Stop 04/06/17 at 19:50; Status DC Lisinopril (Prinivil) 10 mg DAILY PO Last administered on 04/08/17 08:29; Start 04/07/17 at 09:00; Stop 05/07/17 at 08:59 Lorazepam (Ativan) 1 mg Q4HP PRN PO ANXIETY Last administered on 03/31/17 19: 17; Start 03/27/17 at 17:00; Stop 04/08/17 at 08:06; Status DC Lorazepam (Ativan) 1 mg Q8HP PRN PO ANXIETY Last administered on 03/27/17 16: 34; Start 03/27/17 at 11:45; Stop 03/27/17 at 16:59; Status DC Lorazepam (Ativan) 2 mg ASDIRECTED PRN PO SEE PROTOCOL Last administered on 06:58; Start 03/20/17 at 17:15; Stop 03/27/17 at 11:45; Status DC Lorazepam (Ativan) 2 mg Q4HP PRN PO ANXIETY/AGITATION Last administered on 03/26 20:38; Start 03/20/17 at 16:30; Stop 03/27/17 at 11:45; Status DC Magnesium Hydroxide (Milk Of Magnesia) 30 ml DAILYPRN PRN PO CONSTIPATION; Start 03/20/17 at 16:30; Stop 04/19/17 at 16:29 Multivitamins (Theragram-M) 1 tab DAILY PO Last administered on 04/08/17 08:29 ; Start 03/21/17 at 09:00; Stop 04/20/17 at 08:59 Olanzapine (ZyPREXA) 10 mg TID PO Last administered on 04/08/17 08:29; Start 03/21/17 at 21:00; Stop 04/20/17 at 20:59 Risperidone (RisperDAL) 1 mg QID PO Last administered on 03/21/17 12:50; Start 03/20/17 at 17:00; Stop 03/21/17 at 12:51; Status DC Thiamine HCl (Thiamine HCl) 100 mg BID PO Last administered on 03/23/17 08:07 ; Start 03/21/17 at 09:00; Stop 03/23/17 at 09:01; Status DC Trazodone HCl (Desyrel) 50 mg QHSP PRN PO INSOMNIA Last administered on 20:11; Start 03/20/17 at 16:30; Stop 04/19/17 at 16:29 Allergies Coded Allergies: No Known Allergies (Unverified , 03/20/17) JOCE OLIVEIRA MD Apr 08, 2017 15:19
[2017-04-08 18:09] VITALS: BP 139/88
[2017-04-09 06:36] VITALS: BP 160/105
[2017-04-09 07:04] VITALS: BP 160/105
[2017-04-09] MEDS: FOLIC ACID 1 MG TAB PO SCH (08:11)
[2017-04-09] MEDS: MULTIVITAMINS/MINERALS THERAP 1 TAB PO SCH (08:11)
[2017-04-09 08:12] VITALS: BP 160/105
[2017-04-09] MEDS: OLANZapine 10 MG TAB PO SCH (08:12)
[2017-04-09] MEDS: amLODIPine 5 MG TAB PO SCH (08:12)
[2017-04-09] MEDS: LISINOPRIL 10 MG TAB PO SCH (08:12)
[2017-04-09] MEDS: ACETAMINOPHEN TAB 650MG DOSE (2X325MG) PO PRN (08:12)
[2017-04-09] MEDS ORDERED: TRAZO50TA PO (11:13)
[2017-04-09] MEDS ORDERED: AMLO5TAB2 PO (11:13)
[2017-04-09] MEDS ORDERED: FOLI1TAB4 PO (11:13)
[2017-04-09] MEDS ORDERED: LISI10TA4 PO (11:13)
[2017-04-09] MEDS ORDERED: OLAN10TA2 PO (11:13)
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
== END 2017-04-09 13:00 | disposition home or self-care (01) | DRG 750 ==
LOC: M ED 10:57 → M ED INP 16:20 → M PSY 18:06
PROVIDERS: ADMIT Psychiatry & Neurology Psychiatry; ATTEND Psychiatry & Neurology Psychiatry
DX: F25.0 Schizoaffective disorder, bipolar type (principal); F12.10 Cannabis abuse, uncomplicated; Z79.899 Other long term (current) drug therapy; F17.200 Nicotine dependence, unspecified, uncomplicated; M54.2 Cervicalgia; M25.511 Pain in right shoulder; I10 Essential (primary) hypertension